=== PATIENT | male | born 1940 | race Caucasian/White ===

== ENCOUNTER 2019-06-29 19:30 | Outpatient (CLI) | payer MEDICARE | END 2019-06-29 19:31 | disposition home or self-care (01) | LOC: SLEEPLAB 19:30 | PROVIDERS: ATTEND Internal Medicine Cardiovascular Disease | DX: G47.33 Obstructive sleep apnea (adult) (pediatric) (principal); R06.83 Snoring | CPT/HCPCS: 95810 ==

== ENCOUNTER 2019-07-18 20:30 | Outpatient (CLI) | payer MEDICARE | END 2019-07-18 20:31 | disposition home or self-care (01) | LOC: SLEEPLAB 20:30 | PROVIDERS: ATTEND Internal Medicine Cardiovascular Disease | DX: G47.33 Obstructive sleep apnea (adult) (pediatric) (principal); R06.83 Snoring; G47.61 Periodic limb movement disorder | CPT/HCPCS: 95811 ==

== ENCOUNTER 2020-07-19 09:08 | Outpatient (CLI) | payer MEDICARE ==
--- NOTE | 2020-07-19 10:11 | RAD ---
CHEST: Date: 07/19/2020 HISTORY: Dyspnea. Follow-up pneumonia. FINDINGS: Postop midline sternotomy. Left transvenous pacemaker. Patchy increased linear and interstitial david ngs noted bilaterally, more so in the perihilar and lower lung zones, with some blunting of the left costophrenic angle probably representing minimal effusion. No prior exams are available for compariso n. IMPRESSION: 1. Postop midline sternotomy and left transvenous pacemaker. 2. Increased bronchovascular markings bilaterally, particularly in the perihilar and lower lung zone s, with evidence for small left pleural effusion. No prior exams. Continue short-term follow-up. POS: OFF
== END 2020-07-19 09:09 | disposition home or self-care (01) ==
LOC: BICRAD 09:08
PROVIDERS: ATTEND Internal Medicine Critical Care Medicine
DX: R06.00 Dyspnea, unspecified (principal); J90 Pleural effusion, not elsewhere classified; R91.8 Other nonspecific abnormal finding of lung field; Z95.0 Presence of cardiac pacemaker; Z98.890 Other specified postprocedural states
CPT/HCPCS: 71046

== ENCOUNTER 2020-10-17 14:49 | Outpatient (CLI) | payer MEDICARE | END 2020-10-17 14:50 | disposition home or self-care (01) | LOC: BICRAD 14:49 | PROVIDERS: ATTEND Internal Medicine Critical Care Medicine | DX: R06.09 Other forms of dyspnea (principal); I51.7 Cardiomegaly | CPT/HCPCS: 71046 ==

== ENCOUNTER 2020-12-05 09:41 | Outpatient (CLI) | payer MEDICARE | END 2020-12-05 09:42 | disposition home or self-care (01) | LOC: BICRAD 09:41 | PROVIDERS: ATTEND Internal Medicine Critical Care Medicine | DX: R06.00 Dyspnea, unspecified (principal) | CPT/HCPCS: 71046 ==

== ENCOUNTER 2021-10-16 09:36 | Outpatient (CLI) | payer MEDICARE | END 2021-10-16 09:37 | disposition home or self-care (01) | LOC: BICRAD 09:36 | PROVIDERS: ATTEND Internal Medicine Critical Care Medicine | DX: R06.00 Dyspnea, unspecified (principal) | CPT/HCPCS: 71046 ==

== ENCOUNTER 2023-05-01 06:03 | Emergency (ER) | payer MEDICARE ==
[2023-05-01 06:54] LABS: #Monocytes 0.3 thou/uL (0.11-0.59); #Neutrophils 8.8 thou/uL (1.40-6.50); %Basophils 0.2 % (0.0-1.0); %Lymphocytes 4.4 % (21.0-51.0); %Monocytes 2.6 % (0.0-10.0); %Neutrophils 92.2 % (42.0-75.0); Hematocrit 37.7 % (42.0-52.0); Hemoglobin 11.7 g/dL (14.0-18.0); Mean Corpuscular Hemoglobin 29.9 pg (27.0-31.0); Mean Corpuscular Volume 96.4 fl (78.0-98.0); Mean Platelet Volume 9.7 fL (7.4-10.4); Platelet Count 149 10x3/uL (130-400); RBC Distribution Width 14.7 % (11.5-14.5); Red Blood Cell (RBC) Count 3.91 mill/uL (4.70-6.10); White Blood Cell (WBC) Count 9.5 10x3/uL (4.8-10.8)
[2023-05-01] MEDS ORDERED: Acetaminophen 500 MG TAB ONE (06:59)
[2023-05-01 07:12] LABS: Bacteria/HPF None Seen HPF (None Seen); Bilirubin Negative (Negative); Blood, Urine Negative (Negative); CAUTI Indications for Culture Alt mental st,lethar; Clarity Turbid (Clear); Glucose, Urine (Dipstick) Normal (Negative); Ketone, Urine Negative (Negative); Leukocyte Negative Leu/uL (Negative); Nitrite Negative (Negative); Protein, Urine (Dipstick) Negative (Neg-Trace); RBC/HPF 0-3 HPF (0-3); Specific Gravity, Urine 1.016 (1.002-1.036); Squamous Epithelial None Seen HPF (0-3); Urobilinogen Normal mg/dL (Less than 2); WBC/HPF 0-3 HPF (0-3); pH, Urine 7.5 (5.0-9.0)
[2023-05-01 07:14] LABS: Urine Culture Reflex No No
[2023-05-01 07:17] LABS: ALT (SGPT) 10 U/L (8-55); AST (SGOT) 23 U/L (5-34); Albumin 4.8 g/dL (3.4-4.8); Alkaline Phosphatase 56 U/L (40-110); Anion Gap 14 mmol/L (10-20); BUN (Urea Nitrogen) 18 mg/dL (8.4-25.7); Bilirubin, Total 1.2 mg/dL (0.2-1.2); Calc. Creatinine Clearance 0 mL/min (70-130); Carbon Dioxide 24 mmol/L (23-31); Chloride 105 mmol/L (98-107); Estimated GFR 73; Globulin 2.6 g/dL (2.4-3.5); Glucose 134 mg/dL (83-110); Potassium 3.7 mmol/L (3.5-5.1); Protein, Total 7.4 g/dL (5.8-8.1); Sodium 139 mmol/L (136-145)
[2023-05-01 07:21] LABS: Troponin I 0.044 ng/mL (< 0.028)
[2023-05-01 08:00] LABS: SARS-CoV-2 NAA Rapid Test Not Detected (NotDetected)
== END 2023-05-01 09:30 | disposition home or self-care (01) ==
LOC: ERS 06:03
DX: R50.9 Fever, unspecified (principal)
CPT/HCPCS: 0240U; 71045; 80053; 81001; 83605; 83880; 84484; 85025; 87040; 87077; 87086; 87149 ×2; 87186; 93005; 36415; 96360